=== PATIENT | female | born 1980 | race Caucasian/White ===

== ENCOUNTER 2020-09-14 09:24 | Outpatient (REF) | payer OTHER, SELFPAY ==
[2020-09-19 14:22] LABS: HPV mRNA E6/E7 rflx Not Detected (Not Detected)
== END 2020-09-14 09:25 | disposition home or self-care (01) ==
LOC: HO.LAB 09:24
PROVIDERS: PCP Physician Assistant Medical; Visit Provider Advanced Practice Midwife
DX: Z01.419 Encounter for gynecological examination (general) (routine) without abnormal findings (principal); B00.9 Herpesviral infection, unspecified; N83.209 Unspecified ovarian cyst, unspecified side; Z88.2 Allergy status to sulfonamides; Z79.899 Other long term (current) drug therapy
CPT/HCPCS: 87624; 88142